=== PATIENT | male | born 1970 | race Two or more races ===

== ENCOUNTER 2016-06-09 07:09 | Emergency (ER) | payer SELFPAY ==
[2016-06-09 08:12] LABS: ABSOLUTE BASOPHILS # (AUTO) 0.1 10^3/uL (0.0-0.2); ABSOLUTE EOSINOPHILS # (AUTO) 0.1 10^3/uL (0.0-0.6); ABSOLUTE LYMPHOCYTES (AUTO) 2.7 10^3/uL (0.5-4.7); ABSOLUTE MONOCYTES (AUTO) 0.6 10^3/uL (0.1-1.4); ABSOLUTE NEUT (AUTO) 3.5 10^3/uL (1.7-8.2); BASOPHILS % (AUTO) 0.8 % (0-2); EOSINOPHILS % (AUTO) 1.3 % (0-6); HEMATOCRIT 50.2 % (37.9-51.0); HEMOGLOBIN 17.2 g/dL (13.5-17.0); HGB HCT DIFFERENCE 1.4; LYMPHOCYTES % (AUTO) 39.1 % (13-45); MEAN CORPUSCULAR HEMOGLOBIN 29.5 pg (27.0-33.4); MEAN CORPUSCULAR HGB CONC 34.2 g/dL (32.0-36.0); MEAN CORPUSCULAR VOLUME 86 fl (80-97); MONOCYTES % (AUTO) 8.8 % (3-13); RED BLOOD COUNT 5.81 10^6/uL (4.35-5.55); RED CELL DISTRIBUTION WIDTH 13.1 % (11.5-14.0)
[2016-06-09 08:38] LABS: ALANINE AMINOTRANSFERASE 45 U/L (21-72); ALBUMIN 4.8 g/dL (3.5-5.0); ALKALINE PHOSPHATASE 93 U/L (38-126); ANION GAP 17 (5-19); ASPARTATE AMINO TRANSFERASE 27 U/L (17-59); BILIRUBIN,DIRECT 0.1 mg/dL (0.0-0.4); BILIRUBIN,TOTAL 0.8 mg/dL (0.2-1.3); BLOOD UREA NITROGEN 14 mg/dL (7-20); CALCIUM 9.7 mg/dL (8.4-10.2); CARBON DIOXIDE 23 mmol/L (22-30); CHLORIDE 104 mmol/L (98-107); CREATINE KINASE 203 U/L (55-170); CREATININE RESULT 0.69 mg/dL (0.52-1.25); GLUCOSE 130 mg/dL (75-110); POTASSIUM 4.2 mmol/L (3.6-5.0); SODIUM 144.4 mmol/L (137-145); TOTAL PROTEIN 7.9 g/dL (6.3-8.2)
[2016-06-09] MEDS ORDERED: DILTIAZEM HCL/D5W 125 ML IV PRN (08:48)
[2016-06-09] MEDS ORDERED: DILTIAZEM HCL INJ 25 MG/5 ML VIAL IV ONE (08:48)
[2016-06-09 08:59] LABS: CREATINE KINASE MB 1.07 ng/mL (<4.55)
[2016-06-09 09:04] LABS: TROPONIN I < 0.012 ng/mL
--- NOTE | 2016-06-09 10:44 | ER Document Report ---
ED Cardiac <LENNY STEWART - Last Filed: 06/09/16 14:35> - General Mode of Arrival: Ambulatory Information source: Patient TRAVEL OUTSIDE OF THE [place] IN LAST 30 DAYS: No - HPI Patient complains to provider of: Palpitations Associated symptoms: Other - see notes above <JOLENE PATHAK - Last Filed: 06/09/16 15:39> - General Chief Complaint: Palpitations Stated Complaint: SHORTNESS OF BREATH Notes: 45 year old male with history of atrial fibrillation presents to the ED complaining of an irregular heart beat and palpitations that started earlier this morning. Patient reports that he was diagnosed with atrial fibrillation 2- 3 weeks ago at [facility] where a MADI scope was preformed and the patient was shocked back into rhythm. Patient was sent home with [facility] following the procedure and diagnosis. Patient has a follow up appointment with bridget Carranza in 3 months. In the past, patient reports that he was often short of breath with exertion and has passed out multiple times secondary to his irregular heart. He states that this morning he woke up at 0300 with an irregular heart beat and noted that laying down helped, but standing and walking around exacerbated his symptoms. These symptoms are similar to the ones he had in the past. Patient reports that he saw a local page designer 1 year ago where a stress test was preformed and resulted in no findings. Patient went to the [facility] health clinic' where he was referred to bridget Carranza. Patient is Greek speaking and VALENTINA was used to translate. (JOLENE PATHAK) - Related Data Allergies/Adverse Reactions: No Known Allergies Allergy (Verified 06/09/16 07:31) Past Medical History - General Information source: Patient - Social History Smoking Status: Unknown if Ever Smoked Family History: Reviewed & Not Pertinent Patient has suicidal ideation: No Patient has homicidal ideation: No - Past Medical History Cardiac Medical History: Reports: Hx Atrial Fibrillation, Hx Hypercholesterolemia Renal/ Medical History: Denies: Hx Peritoneal Dialysis Psychiatric Medical History: Denies: Hx Depression Past Surgical History: Reports: Hx Orthopedic Surgery - left foot - Immunizations Hx Diphtheria, Pertussis, Tetanus Vaccination: No <JOLENE PATHAK - Last Filed: 06/09/16 15:39> Review of Systems - Review of Systems Constitutional: No symptoms reported EENT: No symptoms reported Cardiovascular: See HPI, Palpitations Respiratory: See HPI, Short of breath Gastrointestinal: No symptoms reported Genitourinary: No symptoms reported Male Genitourinary: No symptoms reported Musculoskeletal: No symptoms reported Skin: No symptoms reported Hematologic/Lymphatic: No symptoms reported Neurological/Psychological: See HPI, Lost consciousness -: Yes All other systems reviewed and negative <JOLENE PATHAK - Last Filed: 06/09/16 15:39> Physical Exam - General General appearance: Alert In distress: None - HEENT Head: Normocephalic, Atraumatic Eyes: Normal Extraocular movements intact: Yes Pupils: PERRL - Respiratory Respiratory status: No respiratory distress Breath sounds: Normal - Cardiovascular Rhythm: Irregularly irregular Heart sounds: Normal auscultation - Abdominal Inspection: Normal - Back Back: Normal - Extremities General upper extremity: Normal inspection, Normal ROM General lower extremity: Normal inspection, Normal ROM - Neurological Neuro grossly intact: Yes Cognition: Normal Orientation: AAOx4 Vance Coma Scale Eye Opening: Spontaneous Vance Coma Scale Verbal: Oriented Vance Coma Scale Motor: Obeys Commands Sussy Coma Scale Total: 15 Speech: Normal - Psychological Associated symptoms: Normal affect, Normal mood - Skin Skin Temperature: Warm Skin Moisture: Dry Skin Color: Normal <JOLENE PATHAK - Last Filed: 06/09/16 15:39> - Vital signs Vitals: Temp Pulse Resp BP Pulse Ox 98.7 F 100 20 126/97 H 98 06/09/16 07:26 06/09/16 07:26 06/09/16 07:26 06/09/16 07:26 06/09/16 07:26 Course - Laboratory Result Diagrams: 06/09/16 08:00 06/09/16 08:00 <LENNY STEWART - Last Filed: 06/09/16 14:35> - Laboratory Result Diagrams: 06/09/16 08:00 06/09/16 08:00 - Consults [facility] (Main) Transfer Line Time consulted: 11:22 [facility] Transfer Line Time consulted: 11:33 Dr. Grey Time consulted: 12:11 <JOLENE PATHAK - Last Filed: 06/09/16 15:39> - Re-evaluation Re-evalutation: 06/09/16 11:00 Patient presents emergency Department chief plain shortness of breath and irregular heartbeat. Omar is Greek-speaking and even via the language line is hard to communicate with. The has discharge instructions and or hand from [facility] where he was discharged on 05/19/2016. He apparently had poor difficulty with beta blockers for his rate control would get hypotensive and passed out. He had a MADI with cardioversion done at the facility earlier this month and was sent home on a 30 day course of L quest began getting short of breath and came in with A. fib RVR was placed on a Cardizem drip and bolus. 45 minutes and a Cardizem drip his heart rate dropped and he became syncopal and woke back up and has a heart rate of 47-57 and is asymptomatic in sinus. I spoke with Dr. Grey at [facility] who is going to accept the transfer of this patient to a facility with ICU monitoring and cardiology consultation. Patient is resting comfortably and stable at this point pending transfer. 11:00 nurse called to bedside, patient complaining of dizziness and feeling faint. Says that he passed out. Reported mild shortness breath with mild headache. Denied chest pain vitals: Heart rate dipped down to 47, Cardizem drip was stopped, EKG repeated showing sinus rhythm at 50 bpm with an incomplete right bundle branch block. Pressure systolic 110. 06/09/16 12:13 06/09/16 14:35 Patient reassessed at the bedside with ambulance crew here for transport and Teleform updated blood pressure 109/75 heart rate 53 O2 sat 99% on room air respiratory rate 19 no current complaints. Stable for transportation (LENNY STEWART ) - Vital Signs Vital signs: Temp Pulse Resp BP Pulse Ox 98 F 100 20 109/75 98 06/09/16 12:50 06/09/16 07:26 06/09/16 14:16 06/09/16 14:16 06/09/16 14:16 - Laboratory Laboratory results interpreted by me: 06/09/16 06/09/16 08:00 08:00 RBC 5.81 H Hgb 17.2 H Glucose 130 H Creatine Kinase 203 H - EKG Interpretation by Me Additional EKG results interpreted by me: 06/09/16 12:25 EKG #1 A. fib RVR 153 bpm with left anterior fascicular block no ST segment elevation. EKG #2 sinus rhythm at 50 bpm incomplete right bundle branch block left anterior fascicular block (LENNY STEWART) - Consults [facility] ([facility]) Transfer Line Reason for consultation: 06/09/16 11:22 Patient was discussed with [facility] and [facility] (JOLENE PATHAK) [facility] Transfer [facility] Reason for consultation: 06/09/16 11:33 [facility] [place] line was called regarding the patient and states they will call back with appropriate information. (JOLENE PATHAK) Dr. Grey Reason for consultation: 06/09/16 12:11 Patient was discussed with Dr. Grey at [facility] ([facility]) and agrees to accept the patient with ICU monitoring and cardiology consult. (JOLENE PATHAK) Critical Care Note - Critical Care Note Total time excluding time spent on procedures (mins): 65 <LENNY STEWART - Last Filed: 06/09/16 14:35> Discharge <LENNY STEWART - Last Filed: 06/09/16 14:35> <JOLENE PATHAK - Last Filed: 06/09/16 15:39> - Discharge Clinical Impression: acute recurrent A. fib with RVR, bradycardia with syncope Scribe Documentation - Scribe Written by Scrblancae:: Presley Wagner, 06/09/2016 1204 acting as scribe for :: López <JOLENE PATHAK - Last Filed: 06/09/16 15:39>
[2016-06-09 11:01] LABS: APPEARANCE,URINE CLEAR; BILIRUBIN,URINE NEGATIVE (NEGATIVE); GLUCOSE, URINE NEGATIVE (NEGATIVE); KETONES,URINE NEGATIVE (NEGATIVE); LEUKOCYTE ESTERASE,URINE NEGATIVE (NEGATIVE); NITRITE,URINE NEGATIVE (NEGATIVE); PROTEIN,URINE NEGATIVE (NEGATIVE); URINE SPECIFIC GRAVITY 1.013; UROBILINOGEN,URINE NEGATIVE mg/dL (<2.0)
[2016-06-09 14:26] VITALS: BP 109/75
--- NOTE | 2016-06-10 17:08 | EKG REPORT ---
SEVERITY:- ABNORMAL ECG - SINUS RHYTHM INCOMPLETE RBBB AND LAFB : Confirmed by: Patricia Valle MD 10-Jun-2016 17:07:25
--- NOTE | 2016-06-10 17:08 | EKG REPORT ---
SEVERITY:- ABNORMAL ECG - ATRIAL FIBRILLATION, V-RATE 94-183 LEFT ANTERIOR FASCICULAR BLOCK : Confirmed by: Patricia Valle MD 10-Jun-2016 17:07:44
== END 2016-06-09 14:45 | disposition short-term general hospital (02) ==
LOC: ER 07:09
DX: I48.91 Unspecified atrial fibrillation (principal); R00.1 Bradycardia, unspecified; R55 Syncope and collapse; R06.02 Shortness of breath
CPT/HCPCS: 93005; 36415; 82553; 82550; 85025; 80053; 81001; 84484; 71010; 93010; J3490 ×2